=== PATIENT | female | born 1975 | race Asian ===

== ENCOUNTER 2025-08-23 22:53 | Emergency (ER) | payer SELFPAY ==
[~2025-08-23] VITALS: Ht 162.6 cm; Wt 83.6 kg
[2025-08-23 22:56] VITALS: O2SAT 100
[2025-08-23 23:07] VITALS: TEMP 36.7; O2SAT 100
[2025-08-24 00:30] VITALS: PULSE 90
[2025-08-24] MEDS: KETOROLAC 15MG/ML VIAL IM ONE (00:30)
[2025-08-24] MEDS: CYCLOBENZAPRINE 10MG TABLET PO ONE (01:44)
[2025-08-24 01:46] VITALS: BP 138/79; RESP 18
[2025-08-24] MEDS: LIDOCAINE 5% PATCH TOP SCH (01:46)
[2025-08-24] MEDS ORDERED: CYCL5TAB3 MT (02:08)
[2025-08-24] MEDS ORDERED: LIDO-53 TP (02:08)
[2025-08-24] MEDS ORDERED: NAPR-1176 MT (02:08)
== END 2025-08-24 02:22 | disposition home or self-care (01) ==
LOC: ER 22:53
DX: M54.2 Cervicalgia (principal); E78.00 Pure hypercholesterolemia, unspecified; I10 Essential (primary) hypertension; Z79.1 Long term (current) use of non-steroidal anti-inflammatories (NSAID)
CPT/HCPCS: 99283; 96372; J1885; A4606